=== PATIENT | female | born 1980 | race African-American/Black ===

== ENCOUNTER 2023-08-04 17:39 | Emergency (ER) | payer OTHER ==
[~2023-08-04] VITALS: Ht 172.7 cm; Wt 90.7 kg
[2023-08-04 18:00] VITALS: BP_SYST 125; PULSE 87; RESP 18; TEMP 98.4; O2SAT 96
[2023-08-04] MEDS: KETOROLAC TROMETHAMINE 30 MG VIAL IM ONE (21:27)
[2023-08-04 21:46] LABS: BILIRUBIN,URINE NEGATIVE (NEGATIVE); BLOOD, URINE 2+ (NEGATIVE); CLARITY/URINE CLEAR (CLEAR); COLOR,URINE YELLOW (YELLOW); GLUCOSE,URINE NEGATIVE (NEGATIVE); KETONES,URINE TRACE (NEGATIVE); LEUKOCYTE ESTERASE ,URINE NEGATIVE (NEGATIVE); NITRITE, URINE POSITIVE (NEGATIVE); PROTEIN URINE NEGATIVE (NEGATIVE); UROBILINOGEN,URINE 0.2 (0.2-1.0)
[2023-08-04 22:01] LABS: BACTERIA,URINE MANY /HPF (None Seen)
[2023-08-04] MEDS ORDERED: FLUT16SP16 NS (22:18)
[2023-08-04] MEDS ORDERED: CETI1TAB2 PO (22:18)
[2023-08-04] MEDS ORDERED: CEPH-548 PO (22:18)
[2023-08-04] MEDS ORDERED: POLYTRIM LEFT EYE (22:18)
[2023-08-04 22:25] LABS: INFLUENZA TYPE A Negative (NEGATIVE); INFLUENZA TYPE B NEGATIVE (NEGATIVE)
[2023-08-04 22:26] LABS: STREPTOCOCCUS A SCREEN (RAPID) NEGATIVE (NEGATIVE)
[2023-08-04] MEDS: cephALEXin 500 MG CAPSULE PO ONE (22:33)
[2023-08-04] MEDS ORDERED: NAPR-688 PO (22:38)
[2023-08-04] MEDS ORDERED: CYCL10TA24 PO (22:38)
[2023-08-05 00:20] VITALS: BP_SYST 125; PULSE 87; RESP 18; TEMP 98.4; O2SAT 96
== END 2023-08-04 22:10 | disposition home or self-care (01) ==
LOC: SED 17:39
DX: H10.89 Other conjunctivitis (principal); J31.0 Chronic rhinitis; R09.81 Nasal congestion; J90 Pleural effusion, not elsewhere classified; Z79.899 Other long term (current) drug therapy; Z20.822 Contact with and (suspected) exposure to COVID-19
CPT/HCPCS: 99284; 71046; 87426; 81001; 86403; 87086; 36415; 96372; 87081; 87804 ×2; 81000; 81015; J1885

== ENCOUNTER 2023-08-12 07:48 | Emergency (ER) | payer OTHER ==
[~2023-08-12] VITALS: Ht 172.7 cm; Wt 104.3 kg
[~2023-08-12 07:48] MED LIST: CEPH-548 PO; CETI1TAB2 PO; CYCL10TA24 PO; FLUT16SP16 NS; NAPR-688 PO; POLYTRIM LEFT EYE
[2023-08-12 08:02] VITALS: BP_SYST 121; PULSE 84; RESP 16; TEMP 97.9; O2SAT 97
[2023-08-12] MEDS ORDERED: BROM118S61 PO (08:33)
[2023-08-12 08:39] VITALS: BP_SYST 121; PULSE 84; RESP 16; TEMP 97.9; O2SAT 97
[2023-08-12 08:43] LABS: INFLUENZA TYPE A Negative (NEGATIVE); INFLUENZA TYPE B NEGATIVE (NEGATIVE)
== END 2023-08-12 08:38 | disposition home or self-care (01) ==
LOC: SED 07:48
DX: J06.9 Acute upper respiratory infection, unspecified (principal); R05.9 Cough, unspecified; R09.89 Other specified symptoms and signs involving the circulatory and respiratory systems; Z79.899 Other long term (current) drug therapy; Z20.822 Contact with and (suspected) exposure to COVID-19
CPT/HCPCS: 36415; 99283